=== PATIENT | female | born 1985 | race Caucasian/White ===

== ENCOUNTER 2023-10-18 14:54 | Emergency (ER) | payer OTHER, MEDICAID, SELFPAY ==
[2023-10-18 14:58] VITALS: BP 141/85; PULSE 102; O2SAT 98
[2023-10-18 15:00] VITALS: BP 135/73; PULSE 108; PULSE 99; RESP 19; O2SAT 97; O2SAT 98; BMI 35.5
--- NOTE | 2023-10-18 15:31 | ED_ITS ---
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 Began suddenly yesterday, patient thought she would to have a bowel movement, but pain was not changed after using the restroom. Pain persisted today despite taking ibuprofen so she decided to present for evaluation. Denies nausea or vomiting, denies changes in bowel or bladder habits. Point of care test negative here. Related Data Allergies Allergy/AdvReac Type Severity Reaction Status Date / Time No Known Drug Allergies Allergy Verified 10/18/23 15:34 Patient History Social History Smoking Status: Current every day smoker Smoking Status: Current every day smoker tobacco type: cigarettes Substance Use Type: does not use Exam Initial Vital Signs Initial Vital Signs: Vital Signs Pulse Rate 102 H 10/18/23 14:58 Blood Pressure 141/85 H 10/18/23 14:58 Pulse Oximetry 98 10/18/23 14:58 Const: Awake, alert, no acute distress, nontoxic appearing Cardiac: regular rate, regular rhythm RESP: unlabored, clear bilaterally, no wheezing GI: Soft, tender to palpation left and right lower quadrants, no rebound or guarding Skin: Warm, Dry, intact, no rashes Neuro: AO x3, CN II-XII grossly intact, moves all extremities Course Orders Ordered: ED Orders 10/18/23 15:13 CBC Auto Diff [Complete Blood Count AUTO DIFF] Stat CMP [Comprehensive Metabolic Panel] Stat Lactate (Lactic Acid) Stat Lipase Stat 10/18/23 15:21 Urine Culture Stat Urine Microscopic Stat 10/18/23 15:31 CT abdomen pelvis w con Stat 10/18/23 16:01 US pelvic complete Stat Discontinued Medications Ketorolac Tromethamine (Ketorolac 30 Mg/Ml Vial) 15 mg IV NOW ONE Stop: 10/18/23 15:32 Last Admin: 10/18/23 15:52 Dose: 15 mg Documented By: MAINOR Vital Signs Vital signs: Vital Signs - 8 hr 10/18/23 14:58 10/18/23 14:58 10/18/23 15:00 Pulse Rate 102 H 108 H Respiratory Rate 19 Blood Pressure 141/85 H 135/73 Pulse Oximetry 98 97 Oxygen Delivery Method Room Air 10/18/23 15:00 10/18/23 15:00 Pulse Rate 99 H Respiratory Rate Blood Pressure 135/73 Pulse Oximetry 98 Oxygen Delivery Method MDM - Abdominal Pain Differential Diagnosis Differential diagnosis: Likely abdominal pain, endometriosis and gastroenteritis Lab Data 10/18/23 15:13 10/18/23 15:13 Labs: Lab Results 10/18/23 10/18/23 Range/Units 15:13 15:21 WBC 12.8 H (4.5-11.0) X10^3/uL RBC 4.89 (4.0-5.2) X10^6/uL Hgb 13.8 (12.0-16.0) g/dL Hct 41.6 (36-46) % MCV 85.1 (80-100) fL MCH 28.3 (26-34) PG MCHC 33.2 (30-36) % RDW 13.6 (11.6-14.8) % Plt Count 206 (150-400) X10^3/uL Neut % (Auto) 87.8 H (50-75) % Lymph % (Auto) 6.5 L (25-40) % [place] % (Auto) 5.1 (3-14) % Eos % (Auto) 0.3 L (2-4) % Baso % (Auto) 0.3 (0-2) % Neut # (Auto) 64966 H (6240-6546) /uL Lymph # (Auto) 800 L (9605-0706) /uL [place] # (Auto) 600 (0-900) /uL Eos # (Auto) 0 (0-450) /uL Baso # (Auto) 0 (0-100) /uL Sodium 137 (137-145) mmol/L Potassium 4.5 (3.4-5.1) mmol/L Chloride 105 (98-107) mmol/L Carbon Dioxide 24 (22-32) mmol/L BUN 14 (7-17) mg/dL Creatinine 0.69 (0.52-1.04) mg/dL Estimated GFR > 60 (>60) mL/min BUN/Creatinine Ratio 20.3 (6-22) Glucose 104 H (70-100) mg/dL Lactate 1.3 (0.7-2.1) mmol/L Calcium 8.7 (8.4-10.2) mg/dL Total Bilirubin 1.2 (0.2-1.3) mg/dL AST 45 H (14-36) IU/L ALT 53 H (<35) IU/L Alkaline Phosphatase 61 (38-126) U/L Total Protein 7.6 (6.3-8.2) g/dL Albumin 4.6 (3.5-5.0) g/dL Globulin 3.0 (1.7-4.1) g/dL Albumin/Globulin Ratio 1.5 (1.0-2.8) Lipase 29 (23-300) U/L Urine RBC 1-5/hpf (0-5/HPF) Urine WBC 10-30/hpf H (0-5/HPF) Ur Squamous Epith Cells 5-10 /hpf H (0-5/HPF) Urine Bacteria Many (>30) H (None) Ur Culture Indicated? Specimen cultured Vol Urine Centrifuged 10ml (spun) Point of care testing: Point of Care Testing Test Results Negative Urine Dip Bedside Urine Glucose Negative Bedside Urine Bilirubin - Negative Bedside Urine Ketone - Negative Urine Specific [place] 1.025 Bedside Urine Occult Blood - Negative Bedside Urine pH 6.0 Bedside Urine Protein +/- 15 Bedside Urine Urobilinogen - Negative Bedside Urine Nitrite + Positive Bedside Urine Leukocytes +/- 15 Esterase Imaging Data US - SWORD SWALLOWER: Radiologist's Impression: PROCEDURE: US PELVIC COMPLETE INDICATIONS: L ADNEXAL MASS TECHNIQUE: Real-time scanning was performed of the pelvic organs, with image documentation. Additional endovaginal scanning was necessary due to incomplete visualization of the adnexal and endometrial structures by transabdominal scanning. COMPARISON: [facility], CT, CT ABDOMEN PELVIS W CON, 10/18/2023, 15:41. FINDINGS: Uterus: Uterus is anteverted and normal in size at 9.2 x 5.7 x 6.4 cm. The myometrium is homogeneous. The endometrium measures 13 mm combined thickness. Ovaries: The right ovary measures 3.6 x 1.8 x 2.2 cm, with a calculated ovarian volume of 4.2 cc. The left ovary measures 6.9 x 4.1 x 2.9 cm, with a calculated ovarian volume of 5.7 cc. There is a focus of decreased echogenicity within the right ovary measuring 1.9 x 1.4 x 1.7 cm. Complex focus of decreased echogenicity is present within the left ovary/adnexal region overall measuring 6.6 x 2.1 x 3.3 cm. Several additional foci of rim enhancement are also superimposed within this region. Doppler flow is identified within the left ovary. Other: No pathologic free abdominal or pelvic fluid. IMPRESSION: Complex focus of echogenicity within the left ovary. This could represent a cluster of cysts with some appearing hemorrhagic. However, also given configuration underlying area of hydrosalpinx cannot be definitively excluded. Recommend correlation to patient's symptoms and short interval imaging follow-up. Doppler flow is identified within the left ovary. We strive to produce accurate, complete, and clear reports of imaging services. To assist us in improving patient care, this report was composed using standard report templates and voice recognition software. Therefore, it may contain abnormal punctuation, insertions and/or omissions. Occasional wrong-word or sound-alike substitutions may occur. Though we review the report and make efforts to correct it, we do recommend that the report be read carefully in proper context to recognize any text inaccuracies. Dictated by: Katerin Moy M.D. on 10/18/2023 at 17:10 Approved by: Katerin Moy M.D. on 10/18/2023 at 17:12 CT scan - abdomen/pelvis: Radiologist's Impression: PROCEDURE: CT ABDOMEN PELVIS W CON INDICATIONS: LLQ ABD PAIN TECHNIQUE: After the administration of intravenous contrast, axial sections acquired from the lung bases to the pubic symphysis. Coronal and sagittal reformats were performed. For radiation dose reduction, the following was used: automated exposure control, adjustment of mA and/or kV according to patient size. COMPARISON: None. FINDINGS: Image quality: Diagnostic. Lower Chest: No significant findings. ABDOMEN: Liver: No solid mass. Gallbladder: There is a radiopaque noncalcified stone present floating in the gallbladder. Biliary ducts: No biliary dilation. Pancreas: No ductal dilation. Spleen: Size is within normal limits. Adrenal Glands: No adrenal nodules. Kidneys and Ureters: No hydronephrosis. No solid mass. No complex renal cystic lesion which requires follow up. Stomach and Bowel: Normal colonic caliber, without significant wall thickening. Peritoneum: No abnormal intraperitoneal fluid. No free air. Ventral Wall: No significant ventral hernia. Abdominal Nodes: No retroperitoneal or mesenteric adenopathy by size criteria. Vessels: Aorta and inferior vena cava are normal in size. PELVIS: Pelvic Organs: There is a enlarged multi-cystic structure in left adnexa with an overall size of 9.0 x 3.9 cm. It has solid components and cystic components. Consider tubo-ovarian abscess. Also consider ovarian torsion. The right adnexa has a somewhat cystic appearance, as well. Bladder: No bladder wall thickening, accounting for underdistention. Pelvic Nodes: No enlarged lymph nodes. Miscellaneous: No inguinal hernias are seen. Bones: No aggressive osseous abnormality. IMPRESSION: 1. Large complex partially cystic and partially solid adnexal structure on the left, likely corresponding with the patient's symptoms. Differential diagnosis includes pelvic inflammatory disease with associated tubo-ovarian abscess. It also includes ovarian torsion. 2. Cholelithiasis. Comment: Recommend pelvic ultrasound for further evaluation of the left adnexa. Dictated by: Julio Dobbs M.D. on 10/18/2023 at 15:50 Approved by: Julio Dobbs M.D. on 10/18/2023 at 15:55 MDM Narrative Medical decision making narrative: One day of left lower quadrant pain. Abdomen soft but she was tender to palpation in both left and right lower quadrants. Point of care negative. Labs and CT imaging ordered. CT imaging shows large left-sided adnexal mass and pelvic ultrasound recommended for further clarification. Patient updated of results so far and in agreement with the plan. Ultrasound most consistent with cluster of cysts with some hemorrhagic components. Can not rule out underlying hydrosalpinx. Case discussed with on- call OBGYN doctor Gina. Laboratory work and imaging findings discussed with her, states that an absence of surgical abdomen white count of 12.8 is nonspecific and without surgical abdomen unlikely to be significant and can be closely followed. US results dsicussed wtih Dr. Moy of radiology who also stated US is indeterminate for abscess and recommended close followup and repeat imaging. Patient advised of lab and imaging findings as well as OB and radiology recommendations. Recommended 24 hour follow up if she was continued to experience pain, sooner if she develops fever, severe pain, other changes in symptoms. Discharge Plan Departure Patient Disposition: Home Clinical Impression: Cyst of left ovary Instructions: DI for Ovarian Cyst Activity Restrictions/Additional Instructions: Your laboratory work today and imaging showed that you have several cysts on your left ovary. There may be some swelling of your fallopian tube behind the swelling, but at this time it was difficult to tell what exactly is going on at this time. There is a possibility that it is an abscess, however it may be too early to tell. I recommend following up in the emergency department in 24 hours if you are continuing to experience pain. Please return if you notice fever, severe worsening of your pain, vomiting. Take Tylenol and ibuprofen as needed for pain. Otherwise follow up with OBGYN. Referrals: Evy Fuentes MD [Physician] - Stand Alone Forms: Patient Portal/API
[2023-10-18 15:38] LABS: Bacteria Urine Many (>30); Culture Indicated Urine Specimen Cultured; RBC Urine 1-5/HPF (0-5/HPF); Squamous Epithelial Cell Urine 5-10 /HPF (0-5/HPF); Urine Volume 10mL (spun); WBC Urine 10-30/HPF (0-5/HPF)
[2023-10-18 15:48] LABS: Add Manual Diff / Slide Review NO; Basophils Absolute Auto 0 /uL (0-100); Basophils Percent Auto 0.3 % (0-2); Eosinophils Absolute Auto 0 /uL (0-450); Eosinophils Percent Auto 0.3 % (2-4); Hematocrit 41.6 % (36-46); Hemoglobin 13.8 g/dL (12.0-16.0); Lymphocytes Absolute Auto 800 /uL (1100-4500); Lymphocytes Percent Auto 6.5 % (25-40); Mean Corpuscular HGB Conc 33.2 % (30-36); Mean Corpuscular Hemoglobin 28.3 PG (26-34); Mean Corpuscular Volume 85.1 fL (80-100); Monocytes Absolute Auto 600 /uL (0-900); Monocytes Percent Auto 5.1 % (3-14); Neutrophils Absolute Auto 11200 /uL (1500-7000); Neutrophils Percent Auto 87.8 % (50-75); Platelet Count 206 X10^3/uL (150-400); Red Blood Cell Count 4.89 X10^6/uL (4.0-5.2); Red Cell Distribution Width 13.6 % (11.6-14.8); White Blood Cell Count 12.8 X10^3/uL (4.5-11.0)
[2023-10-18] MEDS: KETOROLAC 30 MG/ML VIAL 15 MG IV (15:52)
[2023-10-18 15:53] LABS: Lactate (Lactic Acid) 1.3 mmol/L (0.7-2.1)
[2023-10-18 15:54] LABS: Alanine Aminotransferase 53 IU/L (<35); Albumin 4.6 g/dL (3.5-5.0); Albumin Globulin Ratio 1.5 (1.0-2.8); Alkaline Phosphatase 61 U/L (38-126); Aspartate Aminotransferase 45 IU/L (14-36); BUN Creatinine Ratio 20.3 (6-22); Bilirubin Total 1.2 mg/dL (0.2-1.3); Blood Urea Nitrogen 14 mg/dL (7-17); Calcium 8.7 mg/dL (8.4-10.2); Carbon Dioxide 24 mmol/L (22-32); Chloride 105 mmol/L (98-107); Estimated Glomerular Filt Rate > 60 mL/min (>60); Glucose 104 mg/dL (70-100); HEMOLYSIS 93 (0-50); Lipase 29 U/L (23-300); Potassium 4.5 mmol/L (3.4-5.1); Sodium 137 mmol/L (137-145); Total Protein 7.6 g/dL (6.3-8.2)
--- NOTE | 2023-10-18 16:01 | DI.US.S_ITS ---
PROCEDURE: US PELVIC COMPLETE INDICATIONS: L ADNEXAL MASS TECHNIQUE: Real-time scanning was performed of the pelvic organs, with image documentation. Additional endovaginal scanning was necessary due to incomplete visualization of the adnexal and endometrial structures by transabdominal scanning. COMPARISON: [facility], CT, CT ABDOMEN PELVIS W CON, 10/18/2023, 15:41. FINDINGS: Uterus: Uterus is anteverted and normal in size at 9.2 x 5.7 x 6.4 cm. The myometrium is homogeneous. The endometrium measures 13 mm combined thickness. Ovaries: The right ovary measures 3.6 x 1.8 x 2.2 cm, with a calculated ovarian volume of 4.2 cc. The left ovary measures 6.9 x 4.1 x 2.9 cm, with a calculated ovarian volume of 5.7 cc. There is a focus of decreased echogenicity within the right ovary measuring 1.9 x 1.4 x 1.7 cm. Complex focus of decreased echogenicity is present within the left ovary/adnexal region overall measuring 6.6 x 2.1 x 3.3 cm. Several additional foci of rim enhancement are also superimposed within this region. Doppler flow is identified within the left ovary. Other: No pathologic free abdominal or pelvic fluid. IMPRESSION: Complex focus of echogenicity within the left ovary. This could represent a cluster of cysts with some appearing hemorrhagic. However, also given configuration underlying area of hydrosalpinx cannot be definitively excluded. Recommend correlation to patient's symptoms and short interval imaging follow-up. Doppler flow is identified within the left ovary. We strive to produce accurate, complete, and clear reports of imaging services. To assist us in improving patient care, this report was composed using standard report templates and voice recognition software. Therefore, it may contain abnormal punctuation, insertions and/or omissions. Occasional wrong-word or sound-alike substitutions may occur. Though we review the report and make efforts to correct it, we do recommend that the report be read carefully in proper context to recognize any text inaccuracies. Dictated by: Katerin Moy M.D. on 10/18/2023 at 17:10 Approved by: Katerin Moy M.D. on 10/18/2023 at 17:12
[2023-10-18 17:33] VITALS: BP 121/66; PULSE 81; RESP 16; O2SAT 100
== END 2023-10-18 17:52 | disposition home or self-care (01) ==
PROVIDERS: Emergency Provider Emergency Medicine; Family Provider Family Medicine
DX: N83.202 Unspecified ovarian cyst, left side (principal)
CPT/HCPCS: 36415; 74177; 76856; 80053; 81003; 81015; 81025; 83605; 83690; 85025; 87077; 87086; 87186; 96374; 99284; J1885; Q9967